=== PATIENT | male | born 1960 | race Caucasian/White ===

== ENCOUNTER 2016-07-27 08:26 | Day surgery (SDC) | payer OTHER ==
[2016-07-27] MEDS ORDERED: Propofol 10 mg/ml Inj (20 ML) ONE (10:47)
[2016-07-27] MEDS ORDERED: Lactated Ringer's 500 ML IV ONE (10:59)
[2016-07-27 11:43] VITALS: BP 100/61; PULSE 55; RESP 10; TEMP 98; O2SAT 100
== END 2016-07-27 11:44 | disposition home or self-care (01) ==
LOC: H.ENDO 08:26
PROVIDERS: ATTEND Internal Medicine Gastroenterology
DX: K21.9 Gastro-esophageal reflux disease without esophagitis (principal); K44.9 Diaphragmatic hernia without obstruction or gangrene; K21.0 Gastro-esophageal reflux disease with esophagitis; K29.50 Unspecified chronic gastritis without bleeding

== ENCOUNTER 2017-08-09 08:22 | Day surgery (SDC) | payer OTHER ==
[2017-08-09] MEDS ORDERED: Lactated Ringer's 500 ML IV ONE (09:53)
[2017-08-09 10:01] VITALS: TEMP 97
[2017-08-09] MEDS ORDERED: Propofol 10 mg/ml Inj (20 ML) ONE (11:19)
[2017-08-09 11:40] VITALS: O2SAT 100
[2017-08-09 11:56] VITALS: BP 112/76; PULSE 49; RESP 13
== END 2017-08-09 12:04 | disposition home or self-care (01) ==
LOC: H.ENDO 08:22
PROVIDERS: ATTEND Internal Medicine Gastroenterology
DX: K29.50 Unspecified chronic gastritis without bleeding (principal); B96.81 Helicobacter pylori [H. pylori] as the cause of diseases classified elsewhere; K44.9 Diaphragmatic hernia without obstruction or gangrene; R10.13 Epigastric pain
CPT/HCPCS: 43239; 87081; 87205; 88305; 88342; J2001; J2704; J7120